=== PATIENT | male | born 1950 | race Caucasian/White ===

== ENCOUNTER 2021-07-16 13:16 | Emergency (ER) | payer MEDICAID, OTHER ==
[~2021-07-16] VITALS: Ht 162.6 cm; Wt 65.8 kg
[2021-07-16 13:29] VITALS: BP 168/89
--- NOTE | 2021-07-16 13:35 | NUR ---
pt ambulated to bed 11
--- NOTE | 2021-07-16 13:41 | NUR ---
71 y/o male c/o of upper abdominal pain and left upper abdominal blotchy rash with fluid filled vesicles x 3 - 4 days. Pt reports 7/10 pain that radiates to the left upper arm at this time. Pt denies any recent travel, eating, and coming into contact with anything new. Pt denies n/v/d, dizziness, and headaches. A&O x 4, steady gait, even and unlabored breathing at this time. pmedhx: denies nka
[2021-07-16] MEDS ORDERED: PRED20TA5 PO (13:58)
[2021-07-16] MEDS ORDERED: ACYC-258 PO (13:58)
[2021-07-16] MEDS ORDERED: NAPR-54 PO (13:58)
[2021-07-16 14:09] VITALS: BP 168/89
--- NOTE | 2021-07-16 14:10 | NUR ---
Patient discharged with v/s stable. Written and verbal after care instructions about shingles given and explained. Patient alert, oriented and verbalized understanding of instructions. Ambulatory with steady gait. All questions addressed prior to discharge. ID band removed. Patient advised to follow up with PMD. Rx of naproxen, deltasone, and zovirax given. Patient educated on indication of medication including possible reaction and side effects. Opportunity to ask questions provided and answered.
== END 2021-07-16 14:10 | disposition home or self-care (01) ==
LOC: MED 13:16
DX: B02.9 Zoster without complications (principal); Z96.649 Presence of unspecified artificial hip joint; Z79.1 Long term (current) use of non-steroidal anti-inflammatories (NSAID); Z79.899 Other long term (current) drug therapy
CPT/HCPCS: 99283